=== PATIENT | female | born 2000 | race Caucasian/White ===

== ENCOUNTER 2021-05-13 10:30 | Emergency (ER) | payer OTHER ==
[~2021-05-13] VITALS: Ht 149.9 cm; Wt 50.0 kg
[2021-05-13 13:04] VITALS: BP 110/68
== END 2021-05-13 13:45 | disposition home or self-care (01) ==
LOC: EMS 10:32
DX: Z11.1 Encounter for screening for respiratory tuberculosis (principal)
CPT/HCPCS: 71046; 99283